=== PATIENT | male | born 1980 | race Caucasian/White ===

== ENCOUNTER 2018-08-31 07:30 | Emergency (ER) | payer MEDICAID, OTHER ==
[2018-08-31 07:30] VITALS: BMI 23.8
[2018-08-31 07:39] VITALS: O2SAT 99
--- NOTE | 2018-08-31 07:50 | ED PDOC ---
Arrival/HPI - General Historian: Patient - History of Present Illness Narrative History of Present Illness (Text): 08/31/18 07:49 Patient is a 37 year old male with a past medical history of HTN, SVT and hep C presenting to the emergency room for RLQ pain and swelling for 1 day. The pain started yesterday and is sharp in nature. The pain has been intermittent and he is unsure what makes the pain worse. The pain is located anteriorly and radiates down towards his groin. He has been able to eat without nausea or vomiting. He has no complaints other than pain. Denies fevers, chills, diarrhea, constipation, chest pain, shortness of breath, numbness or tingling, bladder or bowel incontinence. PMH: HTN, SVT and hep C PSH: Cholecystectomy and right sided hernia repair Time/Duration: 24 hours Symptom Onset: Sudden Symptom Course: Intermittent Quality: Stabbing <Malcolm Mckenzie - Last Filed: 08/31/18 14:13> <Kapil Roth - Last Filed: 08/31/18 14:17> - General Time Seen by Provider: 08/31/18 07:32 Past Medical History - Provider Review Nursing Documentation Reviewed: Yes - Infectious Disease Hx of Infectious Diseases: None - Tetanus Immunization Tetanus Immunization: Unknown - Cardiac Hx Hypertension: Yes Other/Comment: SVT in the past - Pulmonary Hx Respiratory Disorders: No - Neurological Hx Neurological Disorder: No - HEENT Hx HEENT Disorder: No - Renal Hx Renal Disorder: No - Endocrine/Metabolic Hx Endocrine Disorders: No - Hematological/Oncological Hx Blood Disorders: No - Integumentary Hx Dermatological Disorder: No - Musculoskeletal/Rheumatological Hx Musculoskeletal Disorders: No Hx Falls: No - Gastrointestinal Hx Gastrointestinal Disorders: No - Genitourinary/Gynecological Hx Genitourinary Disorders: No - Psychiatric Hx Depression: No Hx Emotional Abuse: No Hx Physical Abuse: No Hx Substance Use: No - Surgical History Hx Cholecystectomy: Yes - Suicidal Assessment Feels Threatened In Home Enviroment: No <Malcolm Mckenzie - Last Filed: 08/31/18 14:13> Family/Social History - Physician Review Nursing Documentation Reviewed: Yes Family/Social History: Unknown Family HX Smoking Status: Never Smoked Hx Alcohol Use: No Hx Substance Use: No Hx Substance Use Treatment: No <Malcolm Mckenzie - Last Filed: 08/31/18 14:13> Allergies/Home Meds <Malcolm Mckenzie - Last Filed: 08/31/18 14:13> <GonzalezKapil L - Last Filed: 08/31/18 14:17> Allergies/Adverse Reactions: Allergies No Known Allergies Allergy (Verified 08/31/18 07:39) Home Medications: Home Meds Medication Instructions Recorded Confirmed Metoprolol Tartrate [Lopressor] 25 mg PO BID 08/31/18 08/31/18 Review of Systems - Physician Review All systems were reviewed & negative as marked: Yes - Review of Systems Constitutional: Normal. absent: Fatigue, Fevers ENT: Normal. absent: Sore Throat Respiratory: Normal. absent: SOB, Wheezing Cardiovascular: Normal. absent: Chest Pain, Palpitations, Edema, BARRAZA Gastrointestinal: Abdominal Pain (RLQ radiating to groin). absent: Constipation, Diarrhea, Nausea, Vomiting Genitourinary Male: Normal. absent: Dysuria, Frequency, Hematuria Musculoskeletal: Normal. absent: Back Pain Skin: Normal Neurological: Normal. absent: Headache, Dizziness Endocrine: Normal. absent: Diaphoresis Hemo/Lymphatic: Normal. absent: Adenopathy Psychiatric: Normal. absent: Anxiety <Malcolm Mckenzie - Last Filed: 08/31/18 14:13> Physical Exam Vital Signs Reviewed: Yes Vital Signs Temp Pulse Resp BP Pulse Ox 08/31/18 07:38 98.2 F 64 18 153/51 H 99 Temperature: Afebrile Blood Pressure: Hypertensive Pulse: Regular Respiratory Rate: Normal Appearance: Positive for: Well-Appearing, Non-Toxic, Comfortable Pain Distress: Mild Mental Status: Positive for: Alert and Oriented X 3 - Systems Exam Head: Present: Atraumatic, Normocephalic Extroacular Muscles: Present: EOMI Conjunctiva: Present: Normal Mouth: Present: Moist Mucous Membranes Nose (External): Present: Atraumatic Nose (Internal): Present: No Active Bleeding, Moist Neck: Present: Normal Range of Motion Respiratory/Chest: Present: Clear to Auscultation, Good Air Exchange. No: Respiratory Distress, Accessory Muscle Use Cardiovascular: Present: Regular Rate and Rhythm, Normal S1, S2. No: Murmurs Abdomen: Present: Tenderness (RLQ), Normal Bowel Sounds, Guarding. No: Distention, Peritoneal Signs, Rebound Genitourinary Male: Present: Hernias (right inguinal hernia, tender to palpation, increase in size with cough. reduced with ice pack and trendelenburg placement.). No: Testicle Tenderness, Testicle Swelling Back: Present: Normal Inspection. No: CVA Tenderness, Paraspinal Tenderness Upper Extremity: Present: Normal Inspection, NORMAL PULSES. No: Cyanosis, Edema Lower Extremity: Present: Normal Inspection, NORMAL PULSES. No: Edema, CALF TENDERNESS Neurological: Present: GCS=15, Speech Normal, Motor Func Grossly Intact Skin: Present: Warm, Dry, Normal Color. No: Rashes Lymphatic: No: Cervical Adenopathy Psychiatric: Present: Alert, Oriented x 3, Normal Insight, Normal Concentration, Normal Affect, Normal Mood <Malcolm Mckenzie - Last Filed: 08/31/18 14:13> Vital Signs Reviewed: Yes Vital Signs Temp Pulse Resp BP Pulse Ox 08/31/18 07:38 98.2 F 64 18 153/51 H 99 <Kapil Roth - Last Filed: 08/31/18 14:17> Medical Decision Making ED Course and Treatment: 08/31/18 08:03 Patient is a 37 year old male with a past medical history of HTN, SVT and hep C presenting to the emergency room for RLQ pain and swelling for 1 day. Suspected right inguinal hernia. ddx appy Tender to palpation in right inguinal area. Increased bulge with cough. Applied ice pack, placed in Trendelenburg. 1L NS bolus Toradol given for pain Labs, CT w/IV and PO contrast 08/31/18 09:25 Labs are unremarkable. Pain is much improved. Patient has drank his PO contrast without nausea or vomiting. Pending CT 08/31/18 10:47 CT report states no acute intra-abdominal findings. Patient's is currently without pain. Patient was discharged home with referral to General Surgery log operations coordinator, Dr. Brandi Cordero. It was discussed with patient he is to call Dr. Brandi Cordero and schedule an appointment for further management and treatment of his right inguinal hernia. He is to also follow up with his PMD Dr. Hathaway. Patient states he understands. Patient instructed he if starts to experienced severe RLQ abdominal pain, inabi lity to pass flatus or have a bowel movement, he is to go to the nearest emergency room as this may be a concerning sign of worsening condition of his hernia. Re-evaluation Time: 09:25 Reassessment Condition: Improved - Lab Interpretations I have reviewed the lab results: Yes - RAD Interpretation Narrative RAD Interpretations (Text): 08/31/18 10:43 Abd/Pel CT - No acute intra-abdominal findings <Malcolm Mckenzie - Last Filed: 08/31/18 14:13> ED Course and Treatment: 08/31/18 08:36 37 yo male with right lower abdominal/groin pain. DDx: Right Inguinal hernia vs Appy. Agree with resident history and physical, assessment and plan. - Lab Interpretations Lab Results: 08/31/18 08:15 Lab Results 08/31/18 08:15: Sodium 138, Chloride 104, Potassium 4.0, Carbon Dioxide 24, Anion Gap 14, BUN 16, Creatinine 0.8, Est GFR ( Amer) > 60, Est GFR (Non- Af Amer) > 60, Random Glucose 95, Calcium 9.2, Magnesium 1.8, Total Bilirubin 0.4, AST 25, ALT 35, Alkaline Phosphatase 67, Total Protein 7.0, Albumin 4.1, Globulin 2.9, Albumin/Globulin Ratio 1.4 08/31/18 08:15: pO2 86 H, VBG pH 7.36, VBG pCO2 46.0, VBG HCO3 26.0, VBG Total CO2 27.4, VBG O2 Sat (Calc) 98.1 H, VBG Base Excess 0.1, VBG Potassium 4.0, Sodium 138.0, Chloride 104.0, Glucose 91, Lactate 1.6, FiO2 21.0, Venous Blood Potassium 4.0 - RAD Interpretation Radiology Orders: 08/31/18 08:02 ABD PELVIS PO & IV CONTRAST [CT] Stat - Medication Orders Current Medication Orders: Sodium Chloride (Sodium Chloride 0.9%) 1,000 mls @ 999 mls/hr IV .Q1H1M STA Stop: 08/31/18 08:57 Discontinued Medications Ketorolac Tromethamine (Toradol) 30 mg IVP STAT STA Stop: 08/31/18 08:04 <Kapil Roth - Last Filed: 08/31/18 14:17> Disposition/Present on Arrival - Present on Arrival Any Indicators Present on Arrival: No History of DVT/PE: No History of Uncontrolled Diabetes: No Urinary Catheter: No History of Decub. Ulcer: No History Surgical Site Infection Following: None - Disposition Have Diagnosis and Disposition been Completed?: Yes Disposition Time: 10:34 Patient Plan: Discharge <Malcolm Mckenzie - Last Filed: 08/31/18 14:13> <Kapil Roth - Last Filed: 08/31/18 14:17> - Disposition Diagnosis: Right inguinal hernia Disposition: HOME/ ROUTINE Condition: GOOD Discharge Instructions (ExitCare): Inguinal and Femoral (Groin) Hernias Additional Instructions: JAYCEE SINGLETARY, thank you for letting us take care of you today. Your provider was Kapil Roth DO and you were treated for right inguinal hernia. The emergency medical care you received today was directed at your acute symptoms. If you were prescribed any medication, please fill it and take as directed. It may take several days for your symptoms to resolve. Return to the Emergency Department if your symptoms worsen, do not improve, or if you have any other problems. Please contact your doctor or call one of the physicians/clinics you have been referred to that are listed on the Patient Visit Information form that is included in your discharge packet. Bring any paperwork you were given at discharge with you along with any medications you are taking to your follow up visit. Our treatment cannot replace ongoing medical care by a primary care provider outside of the emergency department. Thank you for allowing the [email or web address] team to be part of your care today. If you had an X-Ray or CT scan: A Radiologist will review the ED reading if any change in treatment is needed we will contact you. If you had a blood, urine, or wound culture: It will take several days for the results, if any change in treatment is needed we will contact you. If you had an STI test: It will take 48 hours for the results. Please call after 1 week if you have not heard back. Prescriptions: Naproxen 500 mg PO Q12H PRN #20 tab PRN Reason: Pain, Moderate (4-7) Referrals: Justin Cordero MD [Staff Provider] - Follow up with primary Forms: [employer] (E[place]ian)
[2018-08-31] MEDS ORDERED: Sodium Chloride 0.9% 1,000 ML IV STA (07:57)
[2018-08-31] MEDS ORDERED: Iohexol 240 (50 ml) ONE (08:09)
[2018-08-31 08:24] LABS: BASO # 0.01 K/mm3 (0.0-2.0); BASO % 0.2 % (0.0-3.0); EOS # 0.1 (0.0-0.7); EOS % 3.4 % (1.5-5.0); GRAN # 1.33 (1.4-6.5); GRAN % 32.3 % (50.0-68.0); HEMOGLOBIN 16.2 g/dL (14.0-18.0); LYMPH % 48.4 % (22.0-35.0); MEAN CELL VOLUME 81.7 fl (80.0-105.0); MEAN CORPUSCULAR HEMOGLOBIN 27.7 pg (25.0-35.0); MEAN CORPUSCULAR HGB CONC 33.9 g/dl (31.0-37.0); MEAN PLATELET VOLUME 10.8 fl (7.0-11.0); MONO # 0.7 (0.1-0.6); MONO % 15.7 % (1.0-6.0); RBC 5.85 10^6/uL (3.5-6.1); RED CELL DISTRIBUTION WIDTH 12.7 % (11.5-14.5); VENOUS BLOOD GAS BASE EXCESS 0.1 mmol/L (0.0-2.0); VENOUS BLOOD GAS PO2 86 mm/Hg (30-55); VENOUS BLOOD PH 7.36 (7.32-7.43); WHITE BLOOD COUNT 4.1 10^3/ul (4.5-11.0)
[2018-08-31 08:35] LABS: ALB/GLOB RATIO 1.4 (1.1-1.8); ALBUMIN 4.1 g/dL (3.0-4.8); ALT/SGPT 35 U/L (7-56); AST/SGOT 25 U/L (17-59); BLOOD UREA NITROGEN 16 mg/dL (7-21); CALCIUM 9.2 mg/dL (8.4-10.5); GFR NON-AFRICAN AMERICAN > 60
[2018-08-31 10:26] LABS: URINE BILIRUBIN NEGATIVE (NEGATIVE); URINE BLOOD NEGATIVE (NEGATIVE); URINE GLUCOSE (UA) NEGATIVE (NEGATIVE); URINE LEUKOCYTE ESTERASE NEGATIVE Leu/uL (NEGATIVE); URINE PROTEIN NEGATIVE mg/dL (<30 mg/dL); URINE UROBILINOGEN 0.2 E.U./dL (<1 E.U./dL)
[2018-08-31 10:29] LABS: URINE APPEARANCE CLEAR (CLEAR); URINE COLOR LIGHT YELLOW (YELLOW)
--- NOTE | 2018-08-31 10:31 | CT ---
Date of service: 08/31/2018 PROCEDURE: CT Abdomen and Pelvis with contrast HISTORY: rlq/groin pain r/o appy vs hernia COMPARISON: None. TECHNIQUE: Contrast dose: 150 cc of Omni 350 Radiation dose: Total exam DLP = 812.29 mGy-cm. This CT exam was performed using one or more of the following dose reduction techniques: Automated exposure control, adjustment of the mA and/or kV according to patient size, and/or use of iterative reconstruction technique. FINDINGS: LOWER THORAX: Unremarkable. LIVER: Unremarkable. No gross lesion or ductal dilatation. GALLBLADDER AND BILE DUCTS: Unremarkable. PANCREAS: Unremarkable. No gross lesion or ductal dilatation. SPLEEN: Unremarkable. ADRENALS: Unremarkable. No mass. KIDNEYS AND URETERS: Unremarkable. No hydronephrosis. No solid mass. VASCULATURE: Unremarkable. No aortic aneurysm. BOWEL: Unremarkable. No obstruction. No gross mural thickening. Mild constipation APPENDIX: History of appendectomy. No visible appendix PERITONEUM: Unremarkable. No free fluid. No free air. LYMPH NODES: Unremarkable. No enlarged lymph nodes. BLADDER: Unremarkable. REPRODUCTIVE: Unremarkable. BONES: No acute fracture. OTHER FINDINGS: None. IMPRESSION: No acute intra-abdominal findings
[2018-08-31 10:38] VITALS: BP 127/83; PULSE 61; TEMP 97.6
[2018-08-31 10:47] VITALS: RESP 19
== END 2018-08-31 10:47 | disposition home or self-care (01) ==
LOC: ED 07:30
DX: K40.90 Unilateral inguinal hernia, without obstruction or gangrene, not specified as recurrent (principal); I10 Essential (primary) hypertension; B19.20 Unspecified viral hepatitis C without hepatic coma
CPT/HCPCS: 74177; 80053; 81003; 82803; 83735; 85025; 96374; 99282; J1885; J7030; Q9966; Q9967

== ENCOUNTER 2019-02-03 09:09 | Outpatient (CLI) | payer MEDICAID | END 2019-02-03 09:10 | disposition home or self-care (01) | LOC: PAT 09:09 ==

== ENCOUNTER 2019-02-14 07:30 | Day surgery (SDC) | payer MEDICAID ==
[2019-02-14 08:15] VITALS: BMI 23.8
[2019-02-14 08:22] VITALS: BP 126/86; PULSE 69; RESP 18; TEMP 98.1; O2SAT 100
[2019-02-14] MEDS ORDERED: Bupivacaine Liposomal Inj 20 ml ONE (10:03)
[2019-02-14] MEDS ORDERED: Bupivacaine 0.5% 50 ML IJ ONE (10:03)
== END 2019-02-14 13:12 | disposition home or self-care (01) ==
LOC: SDS 07:30
PROVIDERS: ATTEND Surgery
DX: K40.90 Unilateral inguinal hernia, without obstruction or gangrene, not specified as recurrent (principal)